=== PATIENT | male | born 1955 | race African-American/Black ===

== ENCOUNTER 2018-11-08 09:41 | Outpatient (CLI) | payer MEDICARE ==
--- NOTE | 2018-11-08 10:44 | CT ---
CT chest noncontrast low-dose screening HISTORY: Nicotine dependence. FINDINGS: Within the lateral aspect of the right lung base, a subpleural noncalcified 0.5 cm nodule i s present. Within the lateral aspect of the left upper lobe, there is a 0.3 cm subpleural nodule. Lungs are hyperinflated. Bullous changes are most pronounced at each upper lobe. No pleural fluid or pneumothorax. Lack of contrast limits evaluation of the soft tissues. There is bovine origin of the great vessels a t the aortic arch. Calcified mediastinal lymph nodes and an occasional scattered tiny granuloma within the lungs are consistent with healed granulomatous disease. IMPRESSION: Lung RADS category 2. Benign. Suggest routine screening follow-up. Emphysema.
== END 2018-11-08 09:42 | disposition home or self-care (01) ==
LOC: CT 09:41
PROVIDERS: ATTEND Physician Assistant
DX: F17.210 Nicotine dependence, cigarettes, uncomplicated (principal)
CPT/HCPCS: G0297